=== PATIENT | female | born 1990 | race Caucasian/White ===

== ENCOUNTER 2018-08-17 09:51 | Emergency (ER) | payer BC, OTHER ==
[2018-08-17] MEDS ORDERED: SODIUM CHLORIDE 0.9% 1,000 ML IV STA (10:15)
[2018-08-17] MEDS ORDERED: KETOROLAC 30 MG/ML 1 ML VIAL IVP STA (10:15)
--- NOTE | 2018-08-17 11:14 | ED ---
General Adult HPI - General Chief complaint: Recheck/Abnormal Lab/Rx Stated complaint: pain below ribs Time Seen by Provider: 08/17/18 09:56 Source: patient, RN notes reviewed Mode of arrival: ambulatory Limitations: no limitations - History of Present Illness Initial comments: 28-year-old female presented emergency department with chief complaint of left flank pain. Patient states started this morning. He was a sudden onset of pain. Nothing makes it feel better or worse. She has no dysuria no hematuria no vaginal bleeding or no vaginal discharge. Patient states her last menstrual cycle was one week ago denies any chance . No prior abdominal surgeries. Patient denies any history of kidney stones. Patient denies any fevers or chills. Patient states she got any medications for this pain. - Related Data Previous Rx's Medication Instructions Recorded Dicyclomine [Bentyl] 20 mg PO TID #30 tablet 08/17/18 Ketorolac [Toradol] 10 mg PO Q8HR #15 tab 08/17/18 Allergies Allergy/AdvReac Type Severity Reaction Status Date / Time acetaminophen AdvReac Rash/Hives Verified 08/17/18 10:00 Sulfa (Sulfonamide AdvReac Rash/Hives Verified 08/17/18 10:00 Antibiotics) sulfamethoxazole AdvReac Rash/Hives Verified 08/17/18 10:00 [From Bactrim] trimethoprim [From Bactrim] AdvReac Rash/Hives Verified 08/17/18 10:00 Review of Systems ROS Statement: Those systems with pertinent positive or pertinent negative responses have been documented in the HPI. ROS Other: All systems not noted in ROS Statement are negative. Past Medical History Additional Past Medical History / Comment(s): Irritable bowel syndrome. History of Any Multi-Drug Resistant Organisms: None Reported Past Surgical History: No Surgical Hx Reported Past Anesthesia/Blood Transfusion Reactions: No Reported Reaction Past Psychological History: Bipolar, Depression Smoking Status: Current every day smoker Past Alcohol Use History: Rare Past Drug Use History: None Reported General Exam Limitations: no limitations General appearance: alert, in no apparent distress Head exam: Present: atraumatic, normocephalic, normal inspection Neck exam: Present: normal inspection. Absent: tenderness, meningismus, lymphadenopathy Respiratory exam: Present: normal lung sounds bilaterally. Absent: respiratory distress, wheezes, rales, rhonchi, stridor Cardiovascular Exam: Present: regular rate, normal rhythm, normal heart sounds. Absent: systolic murmur, diastolic murmur, rubs, gallop, clicks GI/Abdominal exam: Present: soft, normal bowel sounds. Absent: distended, tenderness, guarding, rebound, rigid Back exam: Absent: CVA tenderness (R), CVA tenderness (L) Neurological exam: Present: alert Skin exam: Present: warm, dry, intact, normal color. Absent: rash Course Vital Signs 08/17/18 09:52 Temperature 97.4 F L Pulse Rate 83 Respiratory 18 Rate Blood Pressure 123/88 O2 Sat by Pulse 100 Oximetry Medical Decision Making - Medical Decision Making 28-year-old female presented for left-sided abdominal pain. Patient has evidence of long segment colitis on CT. Patient's urinalysis level, unremarkab le. Patient discharged with Bentyl and anti-inflammatories. Patient will follow-up with GI and return for any worsening symptoms. - Lab Data Result diagrams: 08/17/18 11:12 08/17/18 11:06 Lab Results 08/17/18 08/17/18 08/17/18 Range/Units 11:06 11:06 11:06 WBC (3.8-10.6) k/uL RBC (3.80-5.40) m/uL Hgb (11.4-16.0) gm/dL Hct (34.0-46.0) % MCV (80.0-100.0) fL MCH (25.0-35.0) pg MCHC (31.0-37.0) g/dL RDW (11.5-15.5) % Plt Count (150-450) k/uL Neutrophils % % Lymphocytes % % Monocytes % % Eosinophils % % Basophils % % Neutrophils # (1.3-7.7) k/uL Lymphocytes # (1.0-4.8) k/uL Monocytes # (0-1.0) k/uL Eosinophils # (0-0.7) k/uL Basophils # (0-0.2) k/uL Sodium 141 (137-145) mmol/L Potassium 4.1 (3.5-5.1) mmol/L Chloride 110 H (98-107) mmol/L Carbon Dioxide 25 (22-30) mmol/L Anion Gap 6 mmol/L BUN 9 (7-17) mg/dL Creatinine 0.56 (0.52-1.04) mg/dL Est GFR (CKD-EPI)AfAm >90 (>60 ml/min/1.73 sqM) Est GFR (CKD-EPI)NonAf >90 (>60 ml/min/1.73 sqM) Glucose 87 (74-99) mg/dL Calcium 9.3 (8.4-10.2) mg/dL Total Bilirubin 0.5 (0.2-1.3) mg/dL AST 32 (14-36) U/L ALT 56 H (9-52) U/L Alkaline Phosphatase 56 (38-126) U/L Total Protein 7.6 (6.3-8.2) g/dL Albumin 4.5 (3.5-5.0) g/dL Amylase 54 (30-110) U/L Lipase 51 (23-300) U/L Urine Color Yellow Urine Appearance Clear (Clear) Urine pH 7.0 (5.0-8.0) Ur Specific [place] 1.011 (1.001-1.035) Urine Protein Negative (Negative) Urine Glucose (UA) Negative (Negative) Urine Ketones Negative (Negative) Urine Blood Negative (Negative) Urine Nitrite Negative (Negative) Urine Bilirubin Negative (Negative) Urine Urobilinogen <2.0 (<2.0) mg/dL Ur Leukocyte Esterase Negative (Negative) Urine HCG, Qual Not Detected (Not Detectd) 08/17/18 Range/Units 11:12 WBC 5.8 (3.8-10.6) k/uL RBC 5.13 (3.80-5.40) m/uL Hgb 16.3 H (11.4-16.0) gm/dL Hct 47.4 H (34.0-46.0) % MCV 92.4 (80.0-100.0) fL MCH 31.7 (25.0-35.0) pg MCHC 34.3 (31.0-37.0) g/dL RDW 12.1 (11.5-15.5) % Plt Count 252 (150-450) k/uL Neutrophils % 58 % Lymphocytes % 29 % Monocytes % 7 % Eosinophils % 3 % Basophils % 1 % Neutrophils # 3.3 (1.3-7.7) k/uL Lymphocytes # 1.7 (1.0-4.8) k/uL Monocytes # 0.4 (0-1.0) k/uL Eosinophils # 0.1 (0-0.7) k/uL Basophils # 0.0 (0-0.2) k/uL Sodium (137-145) mmol/L Potassium (3.5-5.1) mmol/L Chloride (98-107) mmol/L Carbon Dioxide (22-30) mmol/L Anion Gap mmol/L BUN (7-17) mg/dL Creatinine (0.52-1.04) mg/dL Est GFR (CKD-EPI)AfAm (>60 ml/min/1.73 sqM) Est GFR (CKD-EPI)NonAf (>60 ml/min/1.73 sqM) Glucose (74-99) mg/dL Calcium (8.4-10.2) mg/dL Total Bilirubin (0.2-1.3) mg/dL AST (14-36) U/L ALT (9-52) U/L Alkaline Phosphatase (38-126) U/L Total Protein (6.3-8.2) g/dL Albumin (3.5-5.0) g/dL Amylase (30-110) U/L Lipase (23-300) U/L Urine Color Urine Appearance (Clear) Urine pH (5.0-8.0) Ur Specific [place] (1.001-1.035) Urine Protein (Negative) Urine Glucose (UA) (Negative) Urine Ketones (Negative) Urine Blood (Negative) Urine Nitrite (Negative) Urine Bilirubin (Negative) Urine Urobilinogen (<2.0) mg/dL Ur Leukocyte Esterase (Negative) Urine HCG, Qual (Not Detectd) Disposition Clinical Impression: Colitis Disposition: HOME SELF-CARE Condition: Stable Instructions (If sedation given, give patient instructions): Colitis (ED) Additional Instructions: Please return to the Emergency Department if symptoms worsen or any other concerns. Prescriptions: Dicyclomine [Bentyl] 20 mg PO TID #30 tablet Ketorolac [Toradol] 10 mg PO Q8HR #15 tab Is patient prescribed a controlled substance at d/c from ED?: No Referrals: Clay Krishna DO [Primary Care Provider] - 1-2 days Kamaljit Leblanc MD [STAFF PHYSICIAN] - 1-2 days Time of Disposition: 12:32
[2018-08-17 11:24] LABS: Basophils % (A) 1 %; Eosinophils # (A) 0.1 k/uL (0-0.7); Eosinophils % (A) 3 %; HCT 47.4 % (34.0-46.0); HGB 16.3 gm/dL (11.4-16.0); Lymphocytes # (A) 1.7 k/uL (1.0-4.8); Lymphocytes % (A) 29 %; MCH 31.7 pg (25.0-35.0); MCHC 34.3 g/dL (31.0-37.0); MCV 92.4 fL (80.0-100.0); Mean Platelet Volume 7.3; Monocytes # (A) 0.4 k/uL (0-1.0); Monocytes % (A) 7 %; Neutrophils # (A) 3.3 k/uL (1.3-7.7); Neutrophils % (A) 58 %; Platelet Count 252 k/uL (150-450); RBC 5.13 m/uL (3.80-5.40); RDW 12.1 % (11.5-15.5); WBC 5.8 k/uL (3.8-10.6)
[2018-08-17 11:31] LABS: Appearance,Urine Clear (Clear); Bilirubin,Urine Negative (Negative); Blood,Urine Negative (Negative); Color,Urine Yellow; Glucose,Urine (UA) Negative (Negative); Ketones,Urine Negative (Negative); Leukocyte Esterase,Urine Negative (Negative); Nitrite,Urine Negative (Negative); Protein,Urine Negative (Negative); Specific Gravity,Urine 1.011 (1.001-1.035); Urobilinogen,Urine <2.0 mg/dL (<2.0)
[2018-08-17 11:33] LABS: ALT 56 U/L (9-52); AST 32 U/L (14-36); Albumin 4.5 g/dL (3.5-5.0); Alkaline Phosphatase 56 U/L (38-126); Amylase 54 U/L (30-110); Anion Gap 6 mmol/L; Blood Urea Nitrogen 9 mg/dL (7-17); Calcium 9.3 mg/dL (8.4-10.2); Carbon Dioxide 25 mmol/L (22-30); Chloride 110 mmol/L (98-107); Glucose 87 mg/dL (74-99); Lipase 51 U/L (23-300); Potassium 4.1 mmol/L (3.5-5.1); Sodium 141 mmol/L (137-145); Total Bilirubin 0.5 mg/dL (0.2-1.3); Total Protein 7.6 g/dL (6.3-8.2)
--- NOTE | 2018-08-17 11:43 | XR ---
EXAMINATION TYPE: XR KUB DATE OF EXAM: 08/17/2018 CLINICAL DATA: 28 year-old female with left side pain, abdominal pain, PHH COMPARISON: None FINDINGS: Lung bases are clear. No evidence for free intraperitoneal air. No dilated small bowel or air-fluid levels. Scattered air and stool seen throughout the colon extendi ng distally into the rectum. There is mild stool in the right side of the abdomen. Calcifications in the left side of the pelvis likely relate to phleboliths. IMPRESSION: Rounded calcifications in the left side of the pelvis likely represent phleboliths. No evidence for f ree air or bowel obstruction. Mild stool in the right side of the abdomen.
--- NOTE | 2018-08-17 12:26 | CT ---
EXAMINATION TYPE: CT abdomen pelvis wo con DATE OF EXAM: 08/17/2018 COMPARISON: None HISTORY: Left flank pain CT DLP: 773.9 mGycm Automated exposure control for dose reduction was used. TECHNIQUE: Helical acquisition of images was performed from the lung bases through the pelvis. FINDINGS: LUNG BASES: Minimal bibasilar subsegmental dependent atelectasis is seen. LIVER/GB: No significant abnormality is appreciated. PANCREAS: No significant abnormality is seen. SPLEEN: No splenomegaly as the spleen measures 10.2 cm in craniocaudal dimension. ADRENALS: No significant abnormality is seen. KIDNEYS: No hydronephrosis or nephrolithiasis of either kidney. FREE AIR: No free air is visualized REPRODUCTIVE ORGANS: Follicular and/or cystic changes are present of the left ovary. URINARY BLADDER: No significant abnormality is seen. ADENOPATHY: No greater than 1 cm short axis lymph node is seen in the abdomen or pelvis. OSSEOUS STRUCTURES: Minimal multilevel degenerative change of the spine.. BOWEL: The appendix is air-filled, retrocecal, and within normal limits. No right lower quadrant fat stranding is seen. Very mild mucosal thickening is present of the sigmoid colon in a long segment. N o pericolonic fluid collection to suggest abscess. No surrounding inflammatory change. Bowel is incom pletely distended and suboptimally evaluated without contrast. OTHER: Very small subcentimeter fat filled periumbilical hernia is present. IMPRESSION: 1. VERY MILD LONG SEGMENT BOWEL WALL THICKENING OF THE SIGMOID COLON MAY RELATE TO INCOMPLETE DISTENT ION OR MILD ACUTE UNCOMPLICATED COLITIS. NO SURROUNDING INFLAMMATORY CHANGE OR ABSCESS. 2. FOLLICULAR AND/OR CYSTIC CHANGES OF THE LEFT OVARY. 3. NO CT EVIDENCE OF HYDRONEPHROSIS, NEPHROLITHIASIS OR ACUTE APPENDICITIS.
[2018-08-17] MEDS ORDERED: methylPREDNISolone SOD SUCCI 125 MG/2 ML VIAL IV STA (12:31)
[2018-08-17 12:45] VITALS: BP 125/69; PULSE 71; RESP 19; TEMP 98
== END 2018-08-17 12:46 | disposition home or self-care (01) ==
LOC: EC 09:51
DX: K52.9 Noninfective gastroenteritis and colitis, unspecified (principal); F17.200 Nicotine dependence, unspecified, uncomplicated; Z88.2 Allergy status to sulfonamides; Z88.6 Allergy status to analgesic agent; Z87.19 Personal history of other diseases of the digestive system
CPT/HCPCS: 36415; 80053; 82150; 83690; 85025; 81003; 81025; 74018; 74176; 99284; 96374; 96375; 96361; J2930; J1885

== ENCOUNTER 2020-05-18 17:50 | Emergency (ER) | payer BC ==
[2020-05-18 17:59] VITALS: RESP 18
[2020-05-18] MEDS ORDERED: CYCLOBENZAPRINE 10 MG TAB PO STA (18:22)
[2020-05-18] MEDS ORDERED: KETOROLAC 15 MG/ML 1 ML VIAL IM STA (18:22)
--- NOTE | 2020-05-18 19:02 | XR ---
PROCEDURE: XR cervical spine comp - 5V DATE AND TIME: 05/18/2020 6:33 PM CLINICAL INDICATION: PHH; fall, pain, neck injury TECHNIQUE: Department protocol COMPARISON: None FINDINGS: There is no fracture or malalignment. The soft tissues are unremarkable. IMPRESSION: NO ACUTE PROCESS.
--- NOTE | 2020-05-18 19:16 | ED ---
Back Pain HPI - General Chief Complaint: Back Pain/Injury Stated Complaint: slip & fall Time Seen by Provider: 05/18/20 18:02 Source: patient Limitations: no limitations - History of Present Illness Initial Comments: 30-year-old female presenting to emergency Department with chief complaint of fall. Patient states she slipped on ice patch and fell on the back and causing a headache injury. Patient reports this occurred yesterday but she continues to have pain in the neck and left trapezius. Patient reports he feels like a spasm. She denies any weakness or paresthesias in the left upper extremity. Patient denies any loss of consciousness, blurry vision, gait instability. Denies any blood thinners. Denies taking medication to alleviate the symptoms. States the pain is worse with left rotation of the head. - Related Data Previous Rx's Medication Instructions Recorded Dicyclomine [Bentyl] 20 mg PO TID #30 tablet 08/17/18 Ketorolac [Toradol] 10 mg PO Q8HR #15 tab 08/17/18 Cyclobenzaprine [Flexeril] 10 mg PO TID PRN #15 tab 05/18/20 Allergies Allergy/AdvReac Type Severity Reaction Status Date / Time acetaminophen AdvReac Rash/Hives Verified 05/18/20 17:56 Sulfa (Sulfonamide AdvReac Rash/Hives Verified 05/18/20 17:56 Antibiotics) sulfamethoxazole AdvReac Rash/Hives Verified 05/18/20 17:56 [From Bactrim] trimethoprim [From Bactrim] AdvReac Rash/Hives Verified 05/18/20 17:56 Review of Systems ROS Statement: Those systems with pertinent positive or pertinent negative responses have been documented in the HPI. ROS Other: All systems not noted in ROS Statement are negative. Past Medical History Additional Past Medical History / Comment(s): Irritable bowel syndrome. History of Any Multi-Drug Resistant Organisms: None Reported Past Surgical History: No Surgical Hx Reported Past Anesthesia/Blood Transfusion Reactions: No Reported Reaction Past Psychological History: Bipolar, Depression Smoking Status: Current every day smoker Past Alcohol Use History: Rare Past Drug Use History: None Reported General Exam Limitations: no limitations General appearance: alert, in no apparent distress Head exam: Present: atraumatic (Nobody visible traumatic injuries to the head and neck.), normocephalic, normal inspection. Absent: other (Negative Hernandez sign, raccoon eyes, hemotympanum.) Eye exam: Present: normal appearance, PERRL, EOMI Pupils: Present: normal accommodation ENT exam: Present: normal exam, normal oropharynx, mucous membranes moist, TM's normal bilaterally, normal external ear exam Neck exam: Present: normal inspection, tenderness (Left sided paraspinal tender ness in the cervical region.), full ROM Respiratory exam: Present: normal lung sounds bilaterally. Absent: respiratory distress, wheezes, rales, rhonchi, stridor Cardiovascular Exam: Present: regular rate, normal rhythm, normal heart sounds Extremities exam: Present: normal inspection, full ROM, normal capillary refill, other (Palpable ulnar and radial pulses bilaterally. Strength 5/5 in bilateral biceps and triceps.). Absent: tenderness, pedal edema, joint swelling Back exam: Present: normal inspection, full ROM. Absent: tenderness, CVA tenderness (R), CVA tenderness (L) Neurological exam: Present: alert, oriented X3, CN II-XII intact, normal gait Psychiatric exam: Present: normal affect, normal mood Skin exam: Present: warm, dry, intact, normal color Course Vital Signs 05/18/20 05/18/20 17:56 19:29 Temperature 98.7 F 98.2 F Pulse Rate 90 87 Respiratory 18 18 Rate Blood Pressure 111/88 118/76 O2 Sat by Pulse 99 100 Oximetry Medical Decision Making - Medical Decision Making 30-year-old female presenting to the emergency department with a chief complaint of a fall. On physical examination, only patient has some mild left-sided paraspinal tenderness in the cervical region along with tenderness in the left trapezius. No signs of focal neural deficits. No midline vertebral tenderness in the thoracic and lumbar spine. Patient was offered CT of the brain and C- spine, she declined. Patient was agreeable to an x-ray of the cervical spine. This was negative. Patient was given Toradol and Flexeril. Reevaluation, patient reports improvement in symptoms. Patient will be discharged with Flexeril. She was advised to take ibuprofen for symptomatically relief. Advised to follow with orthopedic edition. Strict return parameters were thoroughly discussed the patient was understanding and agreeable. Disposition Clinical Impression: Neck pain, Fall Disposition: HOME SELF-CARE Condition: Stable Instructions (If sedation given, give patient instructions): Acute Low Back Pain (ED) Additional Instructions: Take prescribed medication as directed. Please return to the Emergency Department if symptoms worsen or any other concerns. Prescriptions: Cyclobenzaprine [Flexeril] 10 mg PO TID PRN #15 tab PRN Reason: Muscle Spasm Is patient prescribed a controlled substance at d/c from ED?: No Referrals: Clay Krishna DO [Primary Care Provider] - 1-2 days Quinn Clarke MD [STAFF PHYSICIAN] - 1-2 days Time of Disposition: 19:15
[2020-05-18 19:45] VITALS: BP 118/76; PULSE 87; TEMP 98.2
== END 2020-05-18 19:29 | disposition home or self-care (01) ==
LOC: EC 17:50
DX: M54.2 Cervicalgia (principal); F17.200 Nicotine dependence, unspecified, uncomplicated; Z88.2 Allergy status to sulfonamides; Z88.1 Allergy status to other antibiotic agents; Z88.6 Allergy status to analgesic agent; W00.0XXA Fall on same level due to ice and snow, initial encounter
CPT/HCPCS: 72050; 99283; 96372; J1885

== ENCOUNTER → 2021-06-25 | Outpatient (CLI) | payer BC ==
--- NOTE | 2021-06-25 08:00 | US ---
EXAMINATION TYPE: US abdomen complete DATE OF EXAM: 06/25/2021 COMPARISON: CT 08/17/2018 CLINICAL HISTORY: R74.8 ABNORMAL LEVELS OF SERUM ENZYMES. Pt states elevated liver enzymes, pt has no other complaints at this time EXAM MEASUREMENTS: Liver Length: 13.1 cm Gallbladder Wall: 0.2 cm CBD: 0.5 cm Spleen: 9.7 cm Right Kidney: 11.4 x 4.2 x 5.2 cm Left Kidney: 10.7 x 6.0 x 5.4 cm Pancreas: wnl, tail obscured by overlying bowel gas Liver: wnl Gallbladder: 2 gallstones visualized with thick septation Evidence for sonographic Clarke's sign: No CBD: wnl Spleen: wnl Right Kidney: Within the midpole the right kidney some focal caliectasis is suspected Left Kidney: Possible renal stone mid/medial= 0.5 cm, echogenic focus seen on today's ultrasound was not seen on prior CT. Within the midpole suspect there is a focal area of caliectasis. Upper IVC: wnl Abd Aorta: wnl The liver is homogenous. The intrahepatic portion of the IVC and proximal abdominal aorta are within normal limits. There is no evidence of cholelithiasis. Common bile duct is unremarkable. The visu alized portions of the pancreas are homogenous. The spleen is unremarkable. Kidneys are symmetric a nd free of hydronephrosis. No renal lesions are seen. IMPRESSION: Cholelithiasis, difficult to exclude a septation versus fold, possible polyp within the g allbladder, recommend surgical consult. Focal caliectasis suspected right kidney, left mid kidney is indeterminate. There are some limitations the exam.
== END | disposition home or self-care (01) ==
LOC: RADUSWWP 07:14
PROVIDERS: ATTEND Family Medicine
DX: K80.20 Calculus of gallbladder without cholecystitis without obstruction (principal)
CPT/HCPCS: 76700

== ENCOUNTER → 2021-08-08 | Outpatient (CLI) | payer BC ==
--- NOTE | 2021-08-08 11:27 | CT ---
EXAMINATION TYPE: CT sinus wo con DATE OF EXAM: 08/08/2021 COMPARISON: Unavailable HISTORY: Chronic sinusitis CT DLP: 605 mGycm. Automated Exposure Control for Dose Reduction was Utilized. TECHNIQUE: CT scan of the sinuses is performed without contrast, axial images are obtained, coronal r eformatted images are also reviewed. FINDINGS: Slightly deviated bony nasal septum. Bilateral middle luanne bullosa. Slightly paradoxical right midd le turbinate. Unremarkable inferior turbinates. Minimal mucosal thickening of the inferior aspect of the nasal fossa bilaterally. Patent infundibulum with clear middle meatus bilaterally. Minimal mucosal thickening of the alveolar recess of the right maxillary sinus. Unremarkable maxillary sinuses otherwise. Unremarkable sphenoid sinus, frontal sinus and ethmoid air cells. Patent sphenoethmoidal recesses. Opacified right inferior mastoid air cells with hypopneumatized left mastoid air cells. Unremarkable visualized portion of the brain and orbits. IMPRESSION: Minimal mucosal thickening of the right maxillary sinus, otherwise clear paranasal sinuses. Other fin dings as described above.
== END | disposition home or self-care (01) ==
LOC: RADCTMAIN 10:27
PROVIDERS: ATTEND Otolaryngology
DX: J34.89 Other specified disorders of nose and nasal sinuses (principal)
CPT/HCPCS: 70486

== ENCOUNTER 2021-09-06 07:38 | Day surgery (SDC) | payer BC ==
[2021-09-04 10:00] VITALS: BMI 30.3
--- NOTE | 2021-09-06 06:39 | P.GSHP ---
History of Present Illness H&P Date: 09/06/21 CHIEF COMPLAINT: Cholecystitis HISTORY OF PRESENT ILLNESS: The patient is a 31-year-old female who presents with history of epigastric including right upper quadrant abdominal pain. She underwent diagnostic studies for her gallbladder. Separately her clinical picture was consistent with cholecystitis. Now she presents for surgical intervention. PAST MEDICAL HISTORY: Please see list PAST SURGICAL HISTORY: Please see list MEDICATIONS: Please see list ALLERGIES: Please see list SOCIAL HISTORY: Please see list FAMILY HISTORY: Please see list REVIEW OF ORGAN SYSTEMS: CONSTITUTIONAL: No reports of fevers or chills. HEENT: Denies any trouble with vision, hearing or nosebleeds. No difficulty swallowing. LYMPHATIC: The patient denies any lumps and bumps around the neck. ENDOCRINE: Denies any thyroid disorders. Denies any blood sugar glucose intolerance. RESPIRATORY: Denies pneumonia. Denies any troubles with breathing or dyspnea on exertion. CARDIOVASCULAR: No chest pain. GASTROINTESTINAL: Has heart burn. GENITOURINARY: Denies any blood in urine or increased urinary frequency. MUSCULOSKELETAL: Has back pain, stiffness, joint arthritis. NEUROLOGIC: Denies any numbness or tingling along the distal extremities. No seizure disorders or headaches. PSYCHIATRIC: Denies suidical ideation. HEMATOLOGIC: Denies any abnormal bleeding or bruising. BREASTS: Denies any breast lumps, pain or nipple discharge. PHYSICAL EXAM: VITAL SIGNS: Afebrile vital signs stable GENERAL: Well-developed pleasant in no acute distress. HEENT: No scleral icterus. Extraocular movements grossly intact. Moist buccal mucosa. NECK: Supple without lymphadenopathy. CHEST: Unlabored respirations. Equal bilateral excursions. CARDIOVASCULAR: Regular rate regular rhythm rhythm. Distal 2+ pulses. ABDOMEN: Soft, nondistended. Tender along the epigastrium and right upper quadrant. MUSCULOSKELETAL: No clubbing, cyanosis, or edema. NEURO: Cranial nerves II to XII within normal limits. No focal or lateralizing signs. PSYCH: Alert and oriented to person, place and time. SKIN: Well-perfused good skin turgor. ASSESSMENT: 1. Epigastric and right upper quadrant abdominal pain 2. Chronic cholecystitis 3. Symptomatic gallstones. PLAN: 1. Will need a robotic cholecystectomy possible open. Benefits and risks were described. 2. Heparin for DVT prophylaxis 5000 units. 3. Antibiotic prophylaxis. Past Medical History Past Medical History: Thyroid Disorder Additional Past Medical History / Comment(s): IBS. THYROID GOITER History of Any Multi-Drug Resistant Organisms: None Reported Past Surgical History: No Surgical Hx Reported Past Anesthesia/Blood Transfusion Reactions: No Reported Reaction Additional Past Anesthesia/Blood Transfusion Reaction / Comment(s): NEVER HAD ANESTH. Past Psychological History: Anxiety Smoking Status: Vaper Past Alcohol Use History: Rare Past Drug Use History: None Reported - Past Family History Mother Family Medical History: No Reported History Medications and Allergies Home Medications Medication Instructions Recorded Confirmed Type ALPRAZolam [Xanax] 0.25 mg PO Q8H PRN 09/04/21 09/04/21 History Allergies Allergy/AdvReac Type Severity Reaction Status Date / Time acetaminophen Allergy Rash/Hives Verified 09/04/21 09:53 Sulfa (Sulfonamide Allergy Rash/Hives Verified 09/04/21 09:53 Antibiotics) sulfamethoxazole Allergy Rash/Hives Verified 09/04/21 09:53 [From Bactrim] trimethoprim [From Bactrim] Allergy Rash/Hives Verified 09/04/21 09:53
[~2021-09-06 07:38] MED LIST: ACETAMINOPHEN TAB 500 MG TAB PO PRN; DEXAMETHASONE SOD PHOSPHATE 4 MG/ML 1 ML VIAL IV ONE; GABAPENTIN 300 MG CAP PO PRN; HEPARIN SODIUM,PORCINE/PF 5,000 UNIT/0.5 ML SYRINGE SQ PRN; HYDROmorphone 0.5 MG/0.5 ML SYRINGE IVP PRN; LACTATED RINGERS 1,000 ML IV SCH; MELOXICAM 7.5 MG TAB PO PRN; ONDANSETRON 4 MG/2 ML VIAL IVP ONE; SCOPOLAMINE 1 MG/72 HR PATCH TRANSDERM PRN
[2021-09-06 08:44] LABS: ALT 54 U/L (4-34); African American GFR (CKD) >90 (>60 ml/min/1.73 sqM); Albumin 4.2 g/dL (3.5-5.0); Anion Gap 5 mmol/L; Blood Urea Nitrogen 14 mg/dL (7-17); Calcium 9.1 mg/dL (8.4-10.2); Carbon Dioxide 26 mmol/L (22-30); Chloride 108 mmol/L (98-107); Glucose 85 mg/dL (74-99); Non-African American GFR(CKD) >90 (>60 ml/min/1.73 sqM); Sodium 139 mmol/L (137-145); Total Bilirubin 0.8 mg/dL (0.2-1.3); Total Protein 7.1 g/dL (6.3-8.2)
[2021-09-06 08:49] LABS: Basophils % (A) 0 %; Eosinophils # (A) 0.1 k/uL (0-0.7); Eosinophils % (A) 2 %; HCT 45.1 % (34.0-46.0); HGB 15.4 gm/dL (11.4-16.0); Lymphocytes # (A) 1.3 k/uL (1.0-4.8); Lymphocytes % (A) 26 %; MCH 31.8 pg (25.0-35.0); MCHC 34.2 g/dL (31.0-37.0); Mean Platelet Volume 7.7; Monocytes # (A) 0.4 k/uL (0-1.0); Monocytes % (A) 7 %; Neutrophils # (A) 3.2 k/uL (1.3-7.7); Neutrophils % (A) 63 %; Platelet Count 277 k/uL (150-450); RBC 4.85 m/uL (3.80-5.40); RDW 12.7 % (11.5-15.5); WBC 5.1 k/uL (3.8-10.6)
[2021-09-06 09:04] LABS: AST 39 U/L (14-36); Alkaline Phosphatase 43 U/L (38-126); Potassium 4.4 mmol/L (3.5-5.1)
[2021-09-06] MEDS ORDERED: SUCCINYLCHOLINE CHLORIDE 100 MG/5 ML SYR IV ONE (09:09)
[2021-09-06] MEDS ORDERED: INDOCYANINE GREEN 25 MG VIAL IV ONE (09:09)
[2021-09-06] MEDS ORDERED: ROCURONIUM 10 MG/ML (5 ML VIAL) IV ONE (09:09)
[2021-09-06] MEDS ORDERED: MIDAZOLAM 2 MG/2 ML VIAL ONE (09:09)
[2021-09-06] MEDS ORDERED: LIDOCAINE 2% INJ 20 MG/ML (2 ML VIAL) ONE (09:09)
[2021-09-06] MEDS ORDERED: fentaNYL (PF) 50 MCG/ML 2 ML AMP ONE (09:09)
[2021-09-06] MEDS ORDERED: GLYCOPYRROLATE 0.2 MG/ML 2 ML VIAL ONE (09:09)
[2021-09-06] MEDS ORDERED: PROPOFOL 10 MG/ML 20 ML VIAL IV ONE (09:09)
[2021-09-06] MEDS ORDERED: NEOSTIGMINE 1 MG/ML 10 ML VIAL ONE (09:09)
[2021-09-06] MEDS ORDERED: LIDOCAINE 0.5%-EPI 1:200,000 50 ML VIAL SQ ONE ×2 (09:33→09:34)
[2021-09-06] MEDS ORDERED: LACTATED RINGERS 1,000 ML IV ONE (09:50)
--- NOTE | 2021-09-06 10:17 | P.OP ---
Date of Procedure: 09/06/21 Description of Procedure: SURGEON: EVELINE BETH MD PREOPERATIVE DIAGNOSES: 1. Symptomatic gallstone 2. Right upper quadrant abdominal pain 3. Generalized anxiety disorder POSTOPERATIVE DIAGNOSES: 1. Symptomatic gallstone 2. Right upper quadrant abdominal pain 3. Chronic cholecystitis 4. Generalized anxiety disorder OPERATION: Robotic-assisted da Natty Xi laparoscopic cholecystectomy, multiport with FIREFLY ESTIMATED BLOOD LOSS: 5 mL. SPECIMENS REMOVED: Gallbladder. COMPLICATIONS: None. OPERATIVE FINDINGS: 1. Gallstones identified at least 5 mm in size INDICATIONS: The patient is a 31-year-old female who presents with symptomatic gallstones. Robotic assisted laparoscopic approach was described. Benefits and risks of the procedure including but not limited to bleeding, infection, injury to the biliary tree was described. Informed consent was obtained. DESCRIPTION OF PROCEDURE: Patient was brought to the operating room, placed in supine position. After general induction, the abdomen had been prepped and draped in standard sterile fashion. The robotic da Natty XI system was primed. After a timeout protocol was performed, the patient had been prepped and draped in standard sterile fashion. The patient was injected with indocyanine green. A 5 mm 0 degrees laparoscopic trocar entry was performed along the left upper quadrant. The abdomen insufflated to 15 mmHg pressure which was tolerated well. Diagnostic laparoscopy demonstrated no injury to bowel viscera or mesentery. The liver surface was unremarkable. Next, two 8 mm robotic ports were placed along the right upper abdomen. The camera 8-mm port was maintained along the epigastrium. Another 8 mm port was placed along the left upper abdominal wall after exchanging the 5 mm port. Please note that the ports were placed at least 10 to 15 cm away from the target anatomy of the gallbladder. The robot was docked along the left lateral abdomen. The patient was repositioned in reverse Trendelenburg position. Using a grasper for arm 3, a grasper for arm 4, including hook cautery for arm 1, the robotic system was docked and primed as described. Instruments were interchanged by the curriculum assistant principal including hook cautery, Bovie cautery and clip appliers. I had sat at the console. Next attention was brought to the infundibulum and cystic structures. The infundibulum and cystic duct were dissected free from surrounding tissues. The cystic duct was isolated. FIREFLY was used to identify the cystic artery and cystic structures. A critical view of safety was obtained. Large PLASTIC clips were used throughout the entire case. Using a clip cloth reeler, 2 clips were placed at the junction of the infundibulum and cystic duct. The cystic duct was divided between clips. Next, the cystic artery was similarly clipped and cauterized. Electro-Bovie cautery was used to remove the gallbladder from the hepatic fossa. Hemostasis was checked and found to be adequate. The robot was undocked. I re-scrubbed into the case. Using a 10 mm Endo Catch bag via the left upper quadrant incision, the specimen was removed from the abdominal cavity. All pneumoperitoneum instruments were evacuated from the abdominal cavity. The incisions were reapproximated using 4-0 Monocryl in an interrupted subcuticular fashion. Fascial defects were less than 8 mm in size. Please note along the trocar sites, local anesthetic was placed as a field block prior to insertion of all instruments. Liquid glue was applied to the skin. At the end of the procedure needle, sponge, and instrument count had been verified correct by the surgical corsetier. The patient was transferred to postanesthesia care unit in stable condition. Intraoperative films were shared with the patient's family. Plan - Discharge Summary Discharge Rx Participant: Yes New Discharge Prescriptions: New Ibuprofen [Motrin] 600 mg PO Q8HR PRN #30 tab PRN Reason: Pain Simethicone [Gas-X] 125 mg PO AC-TID PRN #20 capsule PRN Reason: Pain Continue ALPRAZolam [Xanax] 0.25 mg PO Q8H PRN PRN Reason: Anxiety Discharge Medication List ALPRAZolam [Xanax] 0.25 mg PO Q8H PRN 09/04/21 [History] Ibuprofen [Motrin] 600 mg PO Q8HR PRN #30 tab 09/06/21 [Rx] Simethicone [Gas-X] 125 mg PO AC-TID PRN #20 capsule 09/06/21 [Rx] Follow up Appointment(s)/Referral(s): Eveline Beth MD [STAFF PHYSICIAN] - 09/18/21 (Telehealth) Patient Instructions/Handouts: Laparoscopic Cholecystectomy (DC), Low Fat Diet (DC), *[facility] - Managing Your Pain After Surgery Without Opioids Activity/Diet/Wound Care/Special Instructions: Recommend low-fat diet for the next 2 days. No lifting over 10 pounds in 2 weeks until September 20. August shower. No bath tub soaks for two weeks until September 20. Diet as tolerated. Use simethicone and ibuprofen or Aleve scheduled for the next 24-48 hours for best pain relief. Use ice along incisions for today to prevent swelling. Discharge Disposition: HOME SELF-CARE
[2021-09-06 10:25] VITALS: TEMP 96.8
[2021-09-06] MEDS ORDERED: DEXAMETHASONE SOD PHOSPHATE 10 MG/ML 1 ML VIAL IVP PRN (10:39)
[2021-09-06] MEDS ORDERED: ACETAMINOPHEN IV (For NPO) 1,000 MG in EMPTY BAG 1 BAG IVPB PRN (10:39)
[2021-09-06] MEDS ORDERED: diphenhydrAMINE 50 MG/ML 1 ML VIAL IVP PRN (10:39)
[2021-09-06] MEDS ORDERED: KETOROLAC 15 MG/ML 1 ML VIAL IVP PRN (10:39)
[2021-09-06 12:09] VITALS: BP 92/60; PULSE 55; RESP 17
== END 2021-09-06 12:23 | disposition home or self-care (01) ==
LOC: OR 07:38
PROVIDERS: ATTEND Surgery Plastic and Reconstructive Surgery
DX: K80.10 Calculus of gallbladder with chronic cholecystitis without obstruction (principal); F41.1 Generalized anxiety disorder; Z88.1 Allergy status to other antibiotic agents; Z88.2 Allergy status to sulfonamides
CPT/HCPCS: 47563; S2900; 80053; 81025; 85025; 88304

== ENCOUNTER → 2021-09-13 | Outpatient (CLI) | payer BC ==
[2021-09-13 23:21] LABS: HCT 43.5 % (37.2-46.3); HGB 14.7 g/dL (12.0-15.0); MCH 31.5 pg (27.0-32.0); MCHC 33.8 g/dL (32.0-37.0); MCV 93.1 fL (80.0-97.0); Mean Platelet Volume 11.7 fL (9.5-12.2); NRBC Per 100 WBC 0 /100 WBCS (0.0-0.0); Platelet Count 263 X 10*3/uL (140-440); RBC 4.67 X 10*6/uL (4.10-5.20); RDW 12.2 % (11.5-14.5); WBC 6.97 X 10*3/uL (4.50-10.00)
[2021-09-13 23:35] LABS: Albumin 4.3 g/dL (3.8-4.9); Albumin/Globulin Ratio 1.71 (1.60-3.17); Anion Gap 9.6 mmol/L (10.00-18.00); BUN/Creat Ratio 15.38 Ratio (12.00-20.00); Blood Urea Nitrogen 13.1 mg/dL (9.0-27.0); Calcium 9.4 mg/dL (8.7-10.3); Carbon Dioxide 23.7 mmol/L (20.0-27.5); Globulin 2.5 g/dL (1.6-3.3); Non-African American GFR(CKD) 89.8 (60.0-200.0); Potassium 4.5 mmol/L (3.5-5.5); Total Bilirubin 0.7 mg/dL (0.30-1.20); Total Protein 6.8 g/dL (6.2-8.2)
== END | disposition home or self-care (01) ==
LOC: LABWHC1 17:06
PROVIDERS: ATTEND Surgery Plastic and Reconstructive Surgery
DX: K80.10 Calculus of gallbladder with chronic cholecystitis without obstruction (principal)
CPT/HCPCS: 36415; 80053; 85027

== ENCOUNTER → 2021-09-25 | Outpatient (CLI) | payer BC ==
--- NOTE | 2021-09-25 15:21 | US ---
EXAMINATION TYPE: US gallbladder DATE OF EXAM: 09/25/2021 COMPARISON: NONE CLINICAL HISTORY: 31-year-old female K80.50 CALCULUS OF BILE DUCT W/O CHOLANGITIS. Gallbladder remove d 09/03/21 pain check CBD for stone. TECHNIQUE: Multiple sonographic images of the right upper quadrant are obtained. FINDINGS: EXAM MEASUREMENTS: Liver Length: 12.5 cm Gallbladder: Surgically absent CBD: .5 cm Right Kidney: 10 x 3.9 x 3.9 cm Pancreas: Only portions of the pancreatic head and body are seen. Pancreatic tail obscured by bowel gas shadowing. Liver: wnl Gallbladder: Surgically absent Evidence for sonographic Clarke's sign: No CBD: wnl Right Kidney: wnl IMPRESSION: Status post cholecystectomy. No biliary ductal dilatation.
== END | disposition home or self-care (01) ==
LOC: RADUSWWP 08:20
PROVIDERS: ATTEND Surgery Plastic and Reconstructive Surgery
DX: Z90.49 Acquired absence of other specified parts of digestive tract (principal)
CPT/HCPCS: 76705

== ENCOUNTER → 2023-11-25 | Outpatient (CLI) | payer BC | END | disposition home or self-care (01) | LOC: LABPRL 11:08 | PROVIDERS: ATTEND Family Medicine | DX: Z00.00 Encounter for general adult medical examination without abnormal findings (principal); E66.09 Other obesity due to excess calories | CPT/HCPCS: 83036; 84439; 84443 ==

== ENCOUNTER 2023-12-02 06:45 | Day surgery (SDC) | payer BC ==
[~2023-12-02 06:45] MED LIST changes: -ACETAMINOPHEN TAB 500 MG TAB PO PRN; -DEXAMETHASONE SOD PHOSPHATE 4 MG/ML 1 ML VIAL IV ONE; -GABAPENTIN 300 MG CAP PO PRN; -HEPARIN SODIUM,PORCINE/PF 5,000 UNIT/0.5 ML SYRINGE SQ PRN; -HYDROmorphone 0.5 MG/0.5 ML SYRINGE IVP PRN; +LACTATED RINGERS 1,000 ML BAG ONE; -LACTATED RINGERS 1,000 ML IV SCH; -MELOXICAM 7.5 MG TAB PO PRN; -ONDANSETRON 4 MG/2 ML VIAL IVP ONE; -SCOPOLAMINE 1 MG/72 HR PATCH TRANSDERM PRN
[2023-12-02] MEDS ORDERED: PROPOFOL 10 MG/ML 20 ML VIAL IV ONE (07:00)
--- NOTE | 2023-12-12 15:52 | PCN ---
PROCEDURE NOTE REQUESTING PHYSICIAN: Dr. Clay Krishna. INDICATIONS: The patient is a -[id number] pleasant white female scheduled for an elective colonoscopy as part of evaluation of intermittent lower abdominal pain and change in bowel habits for the last several months' duration. She has been having alternating diarrhea and constipation, but no rectal bleeding. PROCEDURE PERFORMED: Colonoscopy. PREOPERATIVE DIAGNOSIS: Change in bowel habits and lower abdominal pain. ANESTHESIA: IV sedation per Anesthesia. DESCRIPTION OF PROCEDURE: After informed consent was obtained from the patient, she was brought in to the endoscopy unit. IV conscious sedation was administered by Anesthesia under continuous monitoring. Initial digital rectal examination was normal. The Olympus CF-190 video colonoscope was entered into the rectum, gradually advanced to the cecum. Careful examination was performed. The scope was gradually being withdrawn. Ileocecal valve and appendiceal orifice were visualized and appeared normal. The prep was excellent. Mucosa of the cecum, ascending colon, transverse colon, descending colon, sigmoid colon and rectum appeared normal. In the rectum intervention was performed. No lesions were noted and the patient tolerated the procedure well. IMPRESSION: Normal appearing colon from rectum to cecum with no evidence of colitis or colorectal neoplasia. RECOMMENDATIONS: Findings of this examination were discussed with the patient as well as the family. She was advised to begin a high-fiber diet, take fiber supplements on a regular basis and continue to regulate bowel movements. Recommend a repeat colonoscopy in 10 years. MMODL / IJN: [id number] /
== END 2023-12-02 08:00 ==
LOC: ORWHC2ENDO 06:45
PROVIDERS: ATTEND Internal Medicine Gastroenterology
DX: K58.9 Irritable bowel syndrome, unspecified
CPT/HCPCS: 45378; 81025